=== PATIENT | female | born 1965 | race Caucasian/White ===

== ENCOUNTER → 2016-08-31 | Outpatient (CLI) | payer OTHER | LOC: MOB LAB 15:43 | PROVIDERS: ATTEND Student in an Organized Health Care Education/Training Program | DX: E03.9 Hypothyroidism, unspecified (principal) | CPT/HCPCS: 84443 ==

== ENCOUNTER 2016-11-18 17:26 | Emergency (ER) | payer BC ==
[2016-11-18 17:44] VITALS: RESP 18; TEMP 96.5
--- NOTE | 2016-11-18 18:11 | DI ---
XR ANKLE COMPLETE MIN 3VW,11/18/2016 5:43 PM: Clinical History: Left ankle injury and pain. Previous Exam: February 01, 2011 Findings: 3 views of the left ankle are obtained, and demonstrate anatomic alignment without visible fractures. The surrounding soft tissues are mildly prominent. There is mild enthesopathy at the insertion of the plantar fascia. Impression: Soft tissue swelling without underlying fracture.
--- NOTE | 2016-11-18 20:24 | DI ---
XR KNEE 1 OR 2 VWS,11/18/2016 5:55 PM: Clinical History: Left knee pain Previous Exam: None at this facility. Findings: 3 views of the left knee are obtained, and demonstrate anatomic alignment without fractures. Surround ing soft tissues are unremarkable. Impression: No fracture.
--- NOTE | 2016-11-19 02:33 | PDOC ---
Lower Extremity Injury HPI - General Chief Complaint: Lower Extremity Problem/Injury Stated Complaint: LEFT ANKLE PAIN AFTER STEPPING IN HOLE 30 MIN [employer] Date Seen by Provider: 11/18/16 Time Seen by Provider: 17:35 Source: POSITIVE: Patient Exam Limitations: POSITIVE: No limitations Nurse's Notes Reviewed & Considered: Yes - History of Present Illness Initial Comments: The patient is a 50-year-old female. Earlier today she was getting out of her car and she stepped in a hole. She states she "turned" her left ankle. She also fell and sustained an abrasion to her left knee, anterior aspect. She presents to the emergency room complaining of pain to the ankle, primarily lateral aspect, and some discomfort to the anterior aspect of her left knee. She has been ambulating since the accident, but with pain. Have you received a tetanus shot in the past 10 years?: Unknown Body Location Affected: REPORTS: Lower Extremity (L), Other (Left ankle and left knee) Timing: REPORTS: Abrupt Duration: 1 hour Severity: Moderate Quality: REPORTS: "Pain" Context of Injury: REPORTS: Fall, Twist Location of Injury: REPORTS: Knee (L), Ankle (L) Modifying Factors: improves with: Walking, Movement Associated Symptoms: REPORTS: Other (Pain with attempting to bear weight) Any Prior Injuries Related to Current Complaint?: No - Patient Home Medications Home Medications: Home Medications Levothyroxine Sodium 1 tab PO DAILY #90 tab 04/09/15 Multivitamin [Multi-Vitamin Daily] 1 each PO QD tab 11/04/15 Bacillus Coagulans [Probiotic] 1 each PO DAILY cap 02/20/16 Fluocinonide/Emollient Base [Fluocinonide-E 0.05% Cream] 60 gm TOPICAL DAILY tube 08/31/16 Loratadine 10 mg PO DAILY tab 08/31/16 Naproxen Sodium [Aleve] 220 mg PO Q12H PRN 11/18/16 - Patient Allergies Allergies/Adverse Reactions: Allergies Allergy/AdvReac Type Severity Reaction Status Date / Time hydrocodone Allergy Intermediate VOMITING Verified 11/18/16 17:29 latex Allergy Intermediate RASH Verified 11/18/16 17:29 Past Medical History - heen HEENT History: Other (please comment) Additional HEENT History: BILAT CATARACT SURGERY. ALLERGIES Cardiovascular History: Denies History Respiratory History: Denies History Gastrointestinal History: Denies History Genitourinary History: Denies History Endocrine History: Hypothyroidism Musculoskeletal History: Arthritis Prosthesis or Implant: Yes (CATARACT SX) Additional Musculoskeletal History: MULTIPLE "TWISTED ANKLES". NECK PAIN Neurological History: Denies History Blood Disorders: Denies History Psychiatric History: Denies History History of Sexually Transmitted Diseases: No Female Reproductive History: Denies History LMP: 10/23/16 Obstetrical History: Denies History Cancer History: Denies History In Past Year Been Physically Harmed or Verbally Threatened: No History of MDRO: No History of Other Communicable Diseases: No Tobacco Use: Never Smoker Alcohol Use: Rarely Substance Use Type: None Previous Surgical History: Yes Type / Date of Surgery: T&A/ BILAT CATARACT EXT 09/2013/LASIX EYE SX/ D&C X 3/ RIGHT BILAT KNEE SCOPE/ BILATERAL INGUINAL HERNIA/ IVF/ RIGHT THUMB STITCH REMOVAL/ 2 ABDOMINAL TUBALPLASTY Anesthesia Reactions: No Malignant Hyperthermia: No Significant Family History: Heart disease, Cancer, Diabetes, Hypertension Additional Family History: FATHER-CANCER MOTHER-RHEUMATOID ARTHRITIS Past Medical History Reviewed: Reviewed - No Changes ROS - Limitations ROS Limitations: No Limitations Constitution: REPORTS: Denies Symptoms Cardiovascular: REPORTS: Denies Cardiac Symptoms Respiratory: REPORTS: Denies Resp Symptoms Neurological: REPORTS: Denies Neuro Symptoms Gastrointestinal: REPORTS: Denies GI Symptoms Endocrine: REPORTS: Denies Symptoms Musculoskeletal: REPORTS: Joint Pain (Left ankle, left knee) Genitourinary: REPORTS: Denies Symptoms Eyes: REPORTS: Denies Symptoms ENT: REPORTS: Denies Symptoms Skin: REPORTS: Denies Skin Symptoms Lympathic: REPORTS: Denies Lympathic Symptoms Immunologic: POSITIVE: Denies Symptoms Psychiatric: POSITIVE: Denies Psych Symptoms Lower Ext Complaint Exam - General Appearance General Appearance: POSITIVE: Alert, Cooperative, No Acute Distress, No Evidence of Trauma - Extremities Lower Extremity: POSITIVE: Normal ROM, Normal Color, Normal Temperature, Skin Intact, No Evidence of Ischemia, Stable, Soft Tissue Tenderness, Bony Tenderness , Swelling (As above; see diagram), See Diagram. NEGATIVE: Non-Tender ( Tenderness on palpation over anterior aspect of left knee with abrasion here. Swelling lateral aspect of left ankle), No Joint Swelling (Swelling mainly lateral aspect of left ankle), Ecchymosis, Erythema, Deformity, Pulse Deficit, Limited ROM, Laxity of Ligaments, Joint Effusion, Hip Pain on Leg Movement Lower Extremity Ligament: NEGATIVE: Pain on Anterior Drawer, Pain on Posterior Drawer, Laxity on Anterior Drawer, Laxity w/Posterior Drawer, Pain on Medial Stress, Pain on Lateral Stress, Laxity on Medial Stress, Laxity on Lateral Stress, Other Gait: POSITIVE: Antalgic Gait Neurovascular/Tendon: POSITIVE: Sensation Normal, Motor Normal, No Vascular Compromise Skin: POSITIVE: Warm, Dry - Neck / Back Neck/Back: POSITIVE: Normal Inspection, Non-Tender, Painless ROM - Respiratory / CVS Respiratory / CVS: POSITIVE: Chest Non Tender, No Ecchymosis, Breath Sounds Normal, No Respiratory Distress, Heart Sounds Normal, Regular Rate/Rhythm Peripheral Pulses: Radial (R): 2+, Radial (L): 2+ Images - Lower Extremities Lower Extremities: 1 - Abrasion with some tenderness on palpation 2 - Swelling and tenderness on palpation 3 - Some discomfort on palpation Procedures - Splinting Time Splint Applied: 18:00 Location: Cam Walker left lower leg Pre-Proc Neuro Vasc Exam: Normal Splint Type: CAM Walker, Crutches (Patient has crutches at home) Splint Form: Short Extremity Applied By:: Nurse Lower Ext Complaint Progress - Results Reviewed by me Xrays/CTs/US Reviewed by me: Yes Discussed with Radiologist: No (X-ray ankle normal except for some soft tissue swelling. X-ray left knee normal) Radiology Findings: X-ray left ankle normal except for some soft tissue swelling ; x-ray left knee normal - Patient's Progress Pain Medication Addressed: POSITIVE: Yes (Recommended Advil or Tylenol) School/Work Release Addressed: POSITIVE: Not Applicable Re-Examine Time:: 18:25 Re-Examine Comment: Discomfort lasts with Cam Walker Status: POSITIVE: Improved, Re-Examined - Consult Counseled: POSITIVE: Patient, RE: Radiology Results, RE: DX, RE: Need for F/U Patient Care Time - Estimated PCT Patient Care Time (In Minutes): 30 Vital Signs - VS Reviewed Vital Signs Reviewed: Yes Discharge Clinical Impression: Sprain of ankle, Abrasion Discharge Disposition: Discharged to Home Condition: Stable Patient Instructions Given at Discharge: Ankle Sprain (ED), Abrasion (ED) Additional Instructions: Wear cam walker. Use crutches as necessary until you couldn't bear weight comfortably using the cam walker. Wear cam walker for 7-10 days. Advil or Tylenol for discomfort. Cool compresses. Wash abrasions to the knees with soap and water daily and apply bacitracin or Neosporin ointment daily. Return here anytime if condition worsens in any way. Follow-up with your primary care provider or orthopedist. Follow Up With: NAVEEN DANIEL [Primary Care Provider] - (Instructions as above. Follow-up with your primary care provider or orthopedist. Return as necessary.)
== END 2016-11-18 18:37 | disposition home or self-care (01) ==
LOC: ER 17:26
DX: S93.402A Sprain of unspecified ligament of left ankle, initial encounter (principal); S80.212A Abrasion, left knee, initial encounter; W01.0XXA Fall on same level from slipping, tripping and stumbling without subsequent striking against object, initial encounter
CPT/HCPCS: 73560; 73610; 99282; 99283